=== PATIENT | female | born 1970 | race Two or more races ===

== ENCOUNTER 2019-10-09 13:33 | Emergency (ER) | payer OTHER ==
[2019-10-09] MEDS ORDERED: HYDROMORPHONE HCL INJ/PF 2 MG/ML AMPULE IV ONE (14:03)
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
[2019-10-09] MEDS ORDERED: PROPOFOL INJ 200 MG/20 ML VIAL IV ONE ×2 (16:26→17:10)
[2019-10-09] MEDS ORDERED: MIDAZOLAM 2 MG/2 ML INJ IV ONE (16:26)
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
[2019-10-09 18:04] VITALS: BP 133/72
== END 2019-10-09 18:45 | disposition home or self-care (01) ==
LOC: ER 13:33
PROC: 0RSMXZZ Reposition Left Elbow Joint, External Approach (ICD-10-PCS; principal; 2019-10-09)
DX: S53.125A Posterior dislocation of left ulnohumeral joint, initial encounter (principal); M79.602 Pain in left arm; R07.81 Pleurodynia; V89.2XXA Person injured in unspecified motor-vehicle accident, traffic, initial encounter
CPT/HCPCS: 99283; 99152; 96374; 71046; 73070; 73080; 73090; 73030; 73110; 24600; J2250; J1170; J2704